=== PATIENT | female | born 1930 | race Hispanic/Latino ===

== ENCOUNTER 2017-12-11 06:12 | Day surgery (SDC) | payer MEDICARE ==
[~2017-12-11] VITALS: Ht 149.9 cm; Wt 42.6 kg
[~2017-12-11 06:12] MED LIST: SODIUM CHLORIDE 0.9% 1000ML 1,000 ML IV ONE
[2017-12-11] MEDS ORDERED: LOSA1TAB37 PO (07:48)
[2017-12-11] MEDS ORDERED: ATOR10TA69 PO (07:48)
[2017-12-11] MEDS ORDERED: METO-409 PO (07:48)
[2017-12-11] MEDS ORDERED: PROPOFOL 10 MG/ML 20ML VIAL IV ONE (08:38)
[2017-12-11] MEDS ORDERED: ESMOLOL HCL 10 MG/ML 10 ML VIAL ONE (08:38)
[2017-12-11 09:07] VITALS: BP 122/70
[2017-12-11 09:12] VITALS: BP 126/79
[2017-12-11 09:17] VITALS: BP 125/75
== END 2017-12-11 09:33 | disposition home or self-care (01) ==
LOC: ENDO 06:12 → DAH 06:12 → ENDO 09:33
PROVIDERS: ATTEND Internal Medicine Gastroenterology
DX: D12.2 Benign neoplasm of ascending colon (principal); D12.5 Benign neoplasm of sigmoid colon; E78.2 Mixed hyperlipidemia; I10 Essential (primary) hypertension; Z79.899 Other long term (current) drug therapy; I48.91 Unspecified atrial fibrillation; K57.30 Diverticulosis of large intestine without perforation or abscess without bleeding
CPT/HCPCS: 45381; 45385; 88305; 93005; A4606; J2704; J7030; 45380; J3490